=== PATIENT | male | born 1965 | race Caucasian/White ===

== ENCOUNTER 2018-11-13 01:50 | Day surgery (SDC) | payer BC ==
[~2018-11-13] VITALS: Ht 180.3 cm; Wt 82.6 kg
[~2018-11-13 01:50] MED LIST: ACE500 PO; CALC-515 PO; CYCL10TA29 PO; ESOM20CA31 PO; ESOM40CA42 PO; IBU200 PO; LOR5/325 PO; MULT1TAB64 PO; OMEP40CA45 PO; ONDA4TAB PO; RANI-320 PO
[2018-11-13] MEDS ORDERED: PROPOFOL EMUL(*) 10MG/ML 20 ML 40 ML ONE (07:03)
[2018-11-13] MEDS ORDERED: LIDOCAINE MPF 1% 5 ML VIAL ONE (07:03)
[2018-11-13] MEDS ORDERED: KETAMINE HCL 500 MG/10 ML VIAL ONE (07:04)
[2018-11-13] MEDS ORDERED: LIDOCAINE/SOD BICARB 8.4% SYR ID ONE (08:45)
[2018-11-13] MEDS ORDERED: NORMOSOL R SOLN(*) 1000 ML BAG 1,000 ML IV PRN (08:45)
[2018-11-13 09:21] VITALS: BP 143/87
[2018-11-13 10:09] VITALS: BP 100/58
[2018-11-13 10:15] VITALS: BP 92/73
--- NOTE | 2018-11-13 10:23 | Short(Outpt) Discharge Summary ---
Discharge Summary Reason for Hosp/Final Diag: (1) GERD (gastroesophageal reflux disease) Status: Chronic Hospital Course & Plan: EGD with biopsies completed without problems. (2) Johnson esophagus Status: Chronic Departure Discharge to: Home, Self Care Discharge Instructions Home Meds Active Scripts Ranitidine Hcl (RANITIDINE HCL) 300 Mg Tablet, 1 TAB PO QHS, #60 TAB 6 Refills Prov:MINDY MARIE MD 08/26/18 Esomeprazole Magnesium (NEXIUM) 40 Mg Capsule.dr, 1 CAP PO QDAY, #60 CAP 6 Refills TAKE ONE CAPSULE ON AN EMPTY STOMACH FIRST THING EVERY MORNING AND WAIT 30 MINUTES BEFORE EATING Prov:MINDY MARIE MD 08/26/18 Reported Medications Multivitamin (MULTI VITAMIN DAILY) 1 Each Tablet, 1 EACH PO 08/26/18 Calcium Carbonate (TUMS) Unknown Strength Tab.chew, PO PRN, TAB.CHEW 08/26/18 Acetaminophen (Tylenol) 500 Mg Tab, 1-2 TAB PO ONCE PRN, 0 Refills 06/01/11 Ibuprofen (Motrin) 200 Mg Tab, 200 MG PO, #20 0 Refills 06/01/11 Activity: As Tolerated Special Instructions: Your upper endoscopy was completed without any problems. I biopsied your lower esophagus where the Johnson's is located. My office will call you in the next week or two with the biopsy results and to let you know when your next upper endoscopy should be (either 1 or 2 years from now). Problem Qualifiers (1) GERD (gastroesophageal reflux disease): Esophagitis presence: with esophagitis Qualified Codes: K21.0 - Gastro- esophageal reflux disease with esophagitis (2) Johnson esophagus: Johnson's esophagus type: without dysplasia Qualified Codes: K22.70 - Johnson's esophagus without dysplasia MINDY MARIE MD Nov 13, 2018 10:23
[2018-11-13 10:30] VITALS: BP 130/84
[2018-11-13 10:35] VITALS: BP 132/80
[2018-11-13 10:37] VITALS: BP 131/83
== END 2018-11-13 10:45 | disposition home or self-care (01) ==
LOC: OR 01:50
PROVIDERS: ATTEND Surgery
DX: K21.0 Gastro-esophageal reflux disease with esophagitis (principal); K44.9 Diaphragmatic hernia without obstruction or gangrene; K22.70 Barrett's esophagus without dysplasia
CPT/HCPCS: 43239; 88305; 88313; J2001; J2704; J3490